=== PATIENT | female | born 1990 | race Caucasian/White ===

== ENCOUNTER 2019-02-23 13:57 | Emergency (ER) | payer MEDICAID, OTHER ==
[~2019-02-23] VITALS: Ht 170.2 cm; Wt 65.8 kg
[2019-02-23 14:34] LABS: Basophils # (auto) 0 uL; Eosinophils # (auto) 0 uL; Eosinophils % (auto) 0.2 % (0.0-7.0); Hematocrit 43.8 % (36.0-46.0); Lymphocytes # (auto) 1.7 uL
[2019-02-23 14:36] LABS: Basophils % (auto) 0.3 % (0.0-2.0); Hemoglobin 15.2 g/dL (12.2-16.2); Lymphocytes % (auto) 27.1 % (10.0-50.0); Mean Corpuscular Hemoglobin 34.3 pg (28.0-32.0); Mean Corpuscular Hgb Conc. 34.6 g/dL (32.0-36.0); Monocytes # (auto) 0.6 uL; Neutrophils % (auto) 63.4 % (37.0-80.0); Nucleated Red Blood Cells % 0.3 %; Platelet Count (auto) 286 10^3/uL (140-450); Red Blood Cells 4.42 10^6/uL (4.0-5.20); Red Cell Distribution Width 12.3 % (11.8-14.3); White Blood Cell 6.3 10^3/uL (4.4-10.8)
[2019-02-23 14:39] LABS: Calcium 9.3 mg/dL (8.5-10.1); Chloride 106 mmol/L (98-107); Sodium 138 mmol/L (136-145)
[2019-02-23 14:47] LABS: Alanine Aminotransferase 33 U/L (13-56); Albumin 3.8 g/dL (3.4-5.0); Alkaline Phosphatase 67 U/L (45-117); Anion Gap 10 (5-15); Aspartate Aminotransferase 13 U/L (15-37); BUN/Creatinine Ratio 9.1; Bilirubin, Total 0.8 mg/dL (0.2-1.0); Blood Urea Nitrogen 6 mg/dL (7-18); Carbon Dioxide 22 mmol/L (21-32); GFR African American 137 mL/min; GFR Non-African American 113 mL/min; Glucose 90 mg/dL (74-106); Total Protein 8.1 g/dL (6.4-8.2)
[2019-02-23] MEDS ORDERED: ALBUTEROL SULF 2.5 MG/0.5ML(0.5%) NEB SOLN NEB ONE (15:30)
[2019-02-23] MEDS ORDERED: IPRATROPIUM BROM 0.5 MG/2.5ML INH SOL NEB ONE (15:30)
[2019-02-23] MEDS ORDERED: POTASSIUM CHL 20 Meq TABLET PO ONE ×2 (15:30)
[2019-02-23] MEDS ORDERED: ALPRAZolam 0.5 MG TAB PO ONE (16:15)
[2019-02-23 16:24] VITALS: BP 144/81
[2019-02-23 16:56] LABS: Alcohol, Urine < 3.0 mg/dL (0-5); Amphetamine Screen, Urine POSITIVE (NEGATIVE); Barbiturate Scree,Urine NEGATIVE (NEGATIVE); Benzodiazephine Screen, Urine NEGATIVE (NEGATIVE); Cannabinoid Screen, Urine NEGATIVE (NEGATIVE); Cocaine Screen, Urine NEGATIVE (NEGATIVE); Phencyclidine Screen, Urine NEGATIVE (NEGATIVE)
[2019-02-23 17:05] LABS: Opiate Scree,Urine NEGATIVE (NEGATIVE)
== END 2019-02-23 17:05 | disposition left against medical advice (07) ==
LOC: ER 14:06
DX: F41.1 Generalized anxiety disorder (principal); F15.10 Other stimulant abuse, uncomplicated; E87.6 Hypokalemia; F17.210 Nicotine dependence, cigarettes, uncomplicated; Z53.29 Procedure and treatment not carried out because of patient's decision for other reasons
CPT/HCPCS: 36415; 71046; 80053; 80307; 81025; 84484; 85025; 85379; 93005; 94640; 99284; J7611; J7644

== ENCOUNTER 2019-07-01 07:32 | Emergency (ER) | payer OTHER ==
[~2019-07-01] VITALS: Ht 170.2 cm; Wt 59.0 kg
[2019-07-01 08:10] VITALS: BP 105/67
== END 2019-07-01 09:04 | disposition home or self-care (01) ==
LOC: ER 07:32
DX: S46.911A Strain of unspecified muscle, fascia and tendon at shoulder and upper arm level, right arm, initial encounter (principal); Z32.01 Encounter for pregnancy test, result positive; F17.210 Nicotine dependence, cigarettes, uncomplicated; Z91.013 Allergy to seafood
CPT/HCPCS: 81025

== ENCOUNTER 2019-07-21 16:52 | Emergency (ER) | payer OTHER ==
[~2019-07-21] VITALS: Ht 170.2 cm; Wt 63.5 kg
[2019-07-21 17:02] VITALS: BP 98/66
[2019-07-21 18:05] LABS: Albumin 3.2 g/dL (3.4-5.0); BUN/Creatinine Ratio 21.7; Calcium 8.6 mg/dL (8.5-10.1); Potassium 3.4 mmol/L (3.5-5.1)
[2019-07-21 18:08] LABS: Bilirubin, Total 0.3 mg/dL (0.2-1.0); Total Protein 7.1 g/dL (6.4-8.2)
== END 2019-07-21 18:49 | disposition left against medical advice (07) ==
LOC: ER 16:52
DX: O20.9 Hemorrhage in early pregnancy, unspecified (principal); Z3A.12 12 weeks gestation of pregnancy; Z91.013 Allergy to seafood
CPT/HCPCS: 36415; 80053; 84702

== ENCOUNTER → 2020-05-19 | Emergency (ER) | payer SELFPAY ==
[~2020-05-19] VITALS: Ht 172.7 cm; Wt 59.0 kg
[2020-05-19 05:33] VITALS: BP 124/91
== END | disposition home or self-care (01) ==
LOC: ER 05:05
DX: S80.812A Abrasion, left lower leg, initial encounter (principal); Z91.013 Allergy to seafood; X58.XXXA Exposure to other specified factors, initial encounter; Y93.89 Activity, other specified; Y92.89 Other specified places as the place of occurrence of the external cause; Y99.8 Other external cause status

== ENCOUNTER 2021-04-10 04:09 | Emergency (ER) | payer SELFPAY | END 2021-04-10 04:44 | disposition left against medical advice (07) | LOC: ER 04:09 | DX: S69.91XA Unspecified injury of right wrist, hand and finger(s), initial encounter (principal); Z53.21 Procedure and treatment not carried out due to patient leaving prior to being seen by health care provider; X58.XXXA Exposure to other specified factors, initial encounter; Y93.89 Activity, other specified; Y92.89 Other specified places as the place of occurrence of the external cause; Y99.8 Other external cause status ==

== ENCOUNTER 2021-04-15 15:00 | Emergency (ER) | payer SELFPAY ==
[~2021-04-15] VITALS: Ht 170.2 cm; Wt 65.8 kg
[2021-04-15 15:10] VITALS: BP 123/93
== END 2021-04-15 22:24 | disposition left against medical advice (07) ==
LOC: ER 15:00
DX: S62.326A Displaced fracture of shaft of fifth metacarpal bone, right hand, initial encounter for closed fracture (principal); Z53.21 Procedure and treatment not carried out due to patient leaving prior to being seen by health care provider; X58.XXXA Exposure to other specified factors, initial encounter; Y93.89 Activity, other specified; Y92.89 Other specified places as the place of occurrence of the external cause; Y99.8 Other external cause status
CPT/HCPCS: 73130

== ENCOUNTER 2021-07-21 20:47 | Emergency (ER) | payer SELFPAY ==
[~2021-07-21] VITALS: Ht 170.2 cm; Wt 63.5 kg
[2021-07-21 20:56] VITALS: BP 119/81
== END 2021-07-22 01:44 | disposition home or self-care (01) ==
LOC: ER 20:50
DX: Z53.21 Procedure and treatment not carried out due to patient leaving prior to being seen by health care provider
CPT/HCPCS: 81025